=== PATIENT | female | born 1940 | race Caucasian/White ===

== ENCOUNTER → 2020-04-05 | Outpatient (CLI) | payer MEDICARE, OTHER ==
[~2020-04-05] MED LIST: ALBU3IS; ALBU90OI INH; DIPH50 PO; FAMO40 PO; FISH1000; FLUSAL2505; FLUSAL2505 IH; HYDROCHLOROTHIAZIDE; LEVSOD100 PO; LEVSOD75; LISHYD2025 PO; LISI10; MONT10T; MONT10T PO; OMEP20ER PO; POTCHL10ER PO; PRED10; PRED10 PO; REMICADE; TRIF2 PO
== END | disposition home or self-care (01) ==
LOC: LAB SHORT 13:45 → LAB UCHC 13:45
DX: R10.9 Unspecified abdominal pain (principal)
CPT/HCPCS: 87086

== ENCOUNTER → 2022-08-22 | Outpatient (CLI) | payer MEDICARE, OTHER | END | disposition home or self-care (01) | LOC: LAB SHORT 16:11 | DX: L08.9 Local infection of the skin and subcutaneous tissue, unspecified (principal) | CPT/HCPCS: 87070; 87205 ==

== ENCOUNTER 2023-06-15 18:46 | Observation (INO) | payer MEDICARE, OTHER ==
[~2023-06-15] VITALS: Ht 157.5 cm; Wt 55.0 kg
[~2023-06-15 18:46] MED LIST changes: -ATOR10 PO; -DILT120 PO; -ELIQUIS2.5 MG PO; -HYDCHL25 PO; -PRED20 PO; -XARELTO20 MG PO
[2023-06-15 19:58] LABS: BASOPHILS ABSOLUTE AUTO 0.08 K/mm3 (0.00-0.23); BASOPHILS PERCENT AUTO 1 % (0-2); EOSINOPHILS ABSOLUTE AUTO 0.16 K/mm3 (0.00-0.68); EOSINOPHILS PERCENT AUTO 2 % (0-6); Hematocrit 46.6 % (33.0-51.0); IMMATURE GRAN ABSOLUTE AUTO 0.03 K/mm3 (0.00-0.10); IMMATURE GRAN PERCENT AUTO 0 % (0-1); LYMPHOCYTES ABSOLUTE AUTO 1.99 K/mm3 (0.84-5.20); LYMPHOCYTES PERCENT AUTO 25 % (21-46); MONOCYTES ABSOLUTE AUTO 0.64 K/mm3 (0.16-1.47); MONOCYTES PERCENT AUTO 8 % (4-13); Mean Corpuscular HGB 30.6 pg (26.0-34.0); Mean Corpuscular HGB Conc 34.3 g/dL (31.5-36.5); Mean Corpuscular Volume 89 fL (80-100); Mean Platelet Volume 9.5 fL (9.1-12.4); NEUTROPHILS ABSOLUTE AUTO 5.09 K/mm3 (1.96-9.15); NEUTROPHILS PERCENT AUTO 64 % (41-73); Platelet Count 198 K/mm3 (150-400); RDW Coefficient Variation 13.4 % (11.7-14.2); RDW Standard Deviation 43.8 fL (35.1-46.3); Red Blood Cell Count 5.23 M/mm3 (3.80-5.20); White Blood Cell Count 7.99 K/mm3 (4.00-11.30)
[2023-06-15 20:33] LABS: Albumin, Blood 3.9 g/dL (3.4-5.0); Albumin/Globulin Ratio 1.2 (0.8-1.8); Bilirubin, Total 2.1 mg/dL (0.1-1.0); Bun/Creatinine Ratio 17.7 (12.0-20.0); Calcium, Blood 9.2 mg/dL (8.5-10.1); Creatinine, Blood 0.85 mg/dL (0.40-1.00); Globulin, Blood 3.3 g/dL (2.2-4.0); Potassium, Blood 3.2 mmol/L (3.5-5.5); Total Protein, Blood 7.2 g/dL (6.4-8.2)
[2023-06-16] MEDS ORDERED: DILT120 PO ×2 (00:51→16:27)
[2023-06-16] MEDS ORDERED: XARELTO20 MG PO (00:51)
[2023-06-16 03:37] LABS: Thyroid Stimulating Hormone 3.54 uIU/mL (0.360-4.800)
[2023-06-16 03:40] VITALS: BP 145/82
[2023-06-16] MEDS ORDERED: HYDCHL25 PO (03:52)
[2023-06-16] MEDS ORDERED: ATOR10 PO (03:53)
--- NOTE | 2023-06-16 06:14 | NUR ---
SHIFT SUMMARY PATIENT ARRIVED TO PCU 17 VIA STRETCHER. ALERT AND ORINETED X4. ABLE TO SELF TRANSFER TO BED, STEADY ON FEET. PATIENT ARRIVED ON CARDIZEM DRIP AT 5, CONVERTED TO SINUS RHYTHM THIS MORNING, DRIP CURRENTLY OFF. PATIENT ON HOME DOSE O2, NO COMPLAINTS OF SHORTNESS OF BREATH. PATIENT DENIES CHEST PAIN, BLOOD PRESSURE STABLE. WILL CONTINUE TO MONITOR. CALL LIGHT WITHIN REACH.
[2023-06-16 07:18] VITALS: BP 136/86
[2023-06-16 09:17] LABS: Hematocrit 45.6 % (33.0-51.0); Hemoglobin 15.7 g/dL (11.5-16.0); Mean Corpuscular HGB Conc 34.4 g/dL (31.5-36.5); Mean Corpuscular Volume 90 fL (80-100); Mean Platelet Volume 9.8 fL (9.1-12.4); Platelet Count 196 K/mm3 (150-400); RDW Coefficient Variation 13.8 % (11.7-14.2); RDW Standard Deviation 45.3 fL (35.1-46.3); Red Blood Cell Count 5.07 M/mm3 (3.80-5.20); White Blood Cell Count 5.41 K/mm3 (4.00-11.30)
[2023-06-16 09:40] LABS: Albumin, Blood 3.8 g/dL (3.4-5.0); Albumin/Globulin Ratio 1.1 (0.8-1.8); Bilirubin, Total 2.1 mg/dL (0.1-1.0); Bun/Creatinine Ratio 18.1 (12.0-20.0); Calcium, Blood 9.3 mg/dL (8.5-10.1); Creatinine, Blood 0.94 mg/dL (0.40-1.00); Globulin, Blood 3.5 g/dL (2.2-4.0); Potassium, Blood 3.7 mmol/L (3.5-5.5); Total Protein, Blood 7.3 g/dL (6.4-8.2)
[2023-06-16 10:07] LABS: BASOPHILS ABSOLUTE MAN 0.05 K/mm3 (0.00-0.23); BASOPHILS PERCENT MAN 1 % (0-2); EOSINOPHILS PERCENT MAN 0 % (0-6); LYMPHOCYTES ABSOLUTE MAN 0.16 K/mm3 (0.84-5.20); LYMPHOCYTES PERCENT MAN 3 % (21-46); MONOCYTES ABSOLUTE MAN 0.05 K/mm3 (0.16-1.47); MONOCYTES PERCENT MAN 1 % (4-13); NEUTROPHILS ABSOLUTE MAN 5.13 K/mm3 (1.96-9.15); SEG NEUTROPHILS PERCENT MAN 95 % (41-73); TOTAL CELLS COUNTED 100
[2023-06-16 11:30] VITALS: BP 129/72
[2023-06-16] MEDS ORDERED: ELIQUIS2.5 MG PO (16:27)
[2023-06-16] MEDS ORDERED: PRED20 PO (16:27)
--- NOTE | 2023-06-16 18:03 | NUR ---
DISCHARGE: PT D/C VIA WHEECHAIR @1800. DISCHARGE INSTRUCTIONS AND EDUCATIONS PROVIDED. ALL BELONGINGS WITH PT.
== END 2023-06-16 18:05 | disposition home or self-care (01) ==
LOC: ER 18:46 → PCU 18:47
PROVIDERS: Emergency Medicine; Family Medicine; ADMIT Internal Medicine
DX: I48.91 Unspecified atrial fibrillation (principal); I11.0 Hypertensive heart disease with heart failure; I50.33 Acute on chronic diastolic (congestive) heart failure; J96.22 Acute and chronic respiratory failure with hypercapnia; J96.21 Acute and chronic respiratory failure with hypoxia; I27.20 Pulmonary hypertension, unspecified; E87.6 Hypokalemia; J44.9 Chronic obstructive pulmonary disease, unspecified; E03.9 Hypothyroidism, unspecified; Z66 Do not resuscitate; Z87.891 Personal history of nicotine dependence; Z88.0 Allergy status to penicillin; Z88.5 Allergy status to narcotic agent; Z88.8 Allergy status to other drugs, medicaments and biological substances; Z79.890 Hormone replacement therapy; Z79.899 Other long term (current) drug therapy
CPT/HCPCS: 36415; 71045; 71260; 80053; 83880; 84443; 84484; 85025; 85379; 93005; 93010; 94640; 94664; 94760; 96365; 96375; 96375-59; 96376; 96376-59; 97161; 99285-25; A9270; G0378; J1200; J1940; J2930; J7120; J7512; Q9967

== ENCOUNTER → 2023-06-15 | Outpatient (CLI) | payer MEDICARE, OTHER ==
[~2023-06-15] MED LIST changes: +ATOR10 PO; +DILT120 PO; +ELIQUIS2.5 MG PO; +HYDCHL25 PO; +PRED20 PO; +XARELTO20 MG PO
[2023-06-15 15:45] LABS: BASOPHILS ABSOLUTE AUTO 0.08 K/mm3 (0.00-0.23); BASOPHILS PERCENT AUTO 1 % (0-2); EOSINOPHILS ABSOLUTE AUTO 0.15 K/mm3 (0.00-0.68); EOSINOPHILS PERCENT AUTO 2 % (0-6); Hematocrit 46.2 % (33.0-51.0); Hemoglobin 16.1 g/dL (11.5-16.0); IMMATURE GRAN ABSOLUTE AUTO 0.03 K/mm3 (0.00-0.10); IMMATURE GRAN PERCENT AUTO 0 % (0-1); LYMPHOCYTES ABSOLUTE AUTO 1.85 K/mm3 (0.84-5.20); LYMPHOCYTES PERCENT AUTO 23 % (21-46); MONOCYTES ABSOLUTE AUTO 0.62 K/mm3 (0.16-1.47); MONOCYTES PERCENT AUTO 8 % (4-13); Mean Corpuscular HGB 31.4 pg (26.0-34.0); Mean Corpuscular HGB Conc 34.8 g/dL (31.5-36.5); Mean Corpuscular Volume 90 fL (80-100); Mean Platelet Volume 9.6 fL (9.1-12.4); NEUTROPHILS ABSOLUTE AUTO 5.29 K/mm3 (1.96-9.15); NEUTROPHILS PERCENT AUTO 66 % (41-73); Platelet Count 223 K/mm3 (150-400); RDW Coefficient Variation 13.7 % (11.7-14.2); RDW Standard Deviation 45.3 fL (35.1-46.3); Red Blood Cell Count 5.12 M/mm3 (3.80-5.20); White Blood Cell Count 8.02 K/mm3 (4.00-11.30)
[2023-06-15 16:11] LABS: Albumin, Blood 3.9 g/dL (3.4-5.0); Albumin/Globulin Ratio 1.1 (0.8-1.8); Bilirubin, Total 2.4 mg/dL (0.1-1.0); Bun/Creatinine Ratio 14.2 (12.0-20.0); Calcium, Blood 9.3 mg/dL (8.5-10.1); Creatinine, Blood 1.06 mg/dL (0.40-1.00); Free Thyroxine 1.56 ng/dL (0.70-1.60); Globulin, Blood 3.4 g/dL (2.2-4.0); Magnesium, Blood 1.8 mg/dL (1.6-2.4); Potassium, Blood 2.8 mmol/L (3.5-5.5); Thyroid Stimulating Hormone 4.019 uIU/mL (0.360-4.800); Total Protein, Blood 7.3 g/dL (6.4-8.2)
== END | disposition home or self-care (01) ==
LOC: LAB 15:41 → LAB SHORT 15:41
PROVIDERS: Emergency Medicine
DX: I48.91 Unspecified atrial fibrillation (principal); R00.0 Tachycardia, unspecified
CPT/HCPCS: 80053; 83735; 84439; 84443; 84481; 84484; 85025

== ENCOUNTER → 2023-07-26 | Outpatient (CLI) | payer MEDICARE, OTHER ==
[~2023-07-26] MED LIST changes: +ATOR10 PO; +DILT120 PO; +ELIQUIS2.5 MG PO; +HYDCHL25 PO; +PRED20 PO; +XARELTO20 MG PO
[2023-07-26 18:47] LABS: Albumin, Blood 3.6 g/dL (3.4-5.0); Anion Gap 6 mmol/L (6-16); Blood Urea Nitrogen 19 mg/dL (8-24); Bun/Creatinine Ratio 28.5 (12.0-20.0); CO2, Blood 31 mmol/L (21-32); Chloride, Blood 103 mmol/L (98-108); Creatinine, Blood 0.67 mg/dL (0.40-1.00); Glomerular Filtration Rate 87 (60-); Glucose, Blood 109 mg/dL (70-99); Phosphorus, Blood 3.1 mg/dL (2.5-4.9); Sodium, Blood 140 mmol/L (136-145)
== END ==
LOC: LAB 15:00 → LAB SHORT 15:00
PROVIDERS: Internal Medicine
DX: I27.21 Secondary pulmonary arterial hypertension (principal)
CPT/HCPCS: 80069

== ENCOUNTER → 2024-01-31 | Outpatient (CLI) | payer MEDICARE, OTHER ==
[2024-01-31 14:47] LABS: BASOPHILS ABSOLUTE AUTO 0.05 K/mm3 (0.00-0.23); BASOPHILS PERCENT AUTO 1 % (0-2); EOSINOPHILS ABSOLUTE AUTO 0.11 K/mm3 (0.00-0.68); EOSINOPHILS PERCENT AUTO 2 % (0-6); Hematocrit 44.7 % (33.0-51.0); Hemoglobin 14.6 g/dL (11.5-16.0); IMMATURE GRAN ABSOLUTE AUTO 0.02 K/mm3 (0.00-0.10); IMMATURE GRAN PERCENT AUTO 0 % (0-1); LYMPHOCYTES ABSOLUTE AUTO 1.51 K/mm3 (0.84-5.20); LYMPHOCYTES PERCENT AUTO 28 % (21-46); MONOCYTES ABSOLUTE AUTO 0.44 K/mm3 (0.16-1.47); MONOCYTES PERCENT AUTO 8 % (4-13); Mean Corpuscular HGB 30.2 pg (26.0-34.0); Mean Corpuscular HGB Conc 32.7 g/dL (31.5-36.5); Mean Corpuscular Volume 92 fL (80-100); Mean Platelet Volume 10.6 fL (9.1-12.4); NEUTROPHILS ABSOLUTE AUTO 3.29 K/mm3 (1.96-9.15); NEUTROPHILS PERCENT AUTO 61 % (41-73); Platelet Count 175 K/mm3 (150-400); RDW Coefficient Variation 14.6 % (11.7-14.2); RDW Standard Deviation 49.5 fL (35.1-46.3); Red Blood Cell Count 4.84 M/mm3 (3.80-5.20); White Blood Cell Count 5.42 K/mm3 (4.00-11.30)
[2024-01-31 14:58] LABS: Anion Gap 11 mmol/L (3-11); Blood Urea Nitrogen 25 mg/dL (8-24); Bun/Creatinine Ratio 28.1 (12.0-20.0); Bun/Creatinine Ratio 29.3 (12.0-20.0); CO2, Blood 26 mmol/L (21-32); Calcium, Blood 9.2 mg/dL (8.5-10.1); Calcium, Blood 9.3 mg/dL (8.5-10.1); Chloride, Blood 106 mmol/L (98-108); Creatinine, Blood 0.85 mg/dL (0.40-1.00); Creatinine, Blood 0.89 mg/dL (0.40-1.00); Glomerular Filtration Rate 65 (60-); Glucose, Blood 91 mg/dL (70-99); Phosphorus, Blood 3.4 mg/dL (2.5-4.9); Potassium, Blood 3.3 mmol/L (3.5-5.5); Sodium, Blood 140 mmol/L (136-145)
== END | disposition home or self-care (01) ==
LOC: LAB 11:15 → LAB SHORT 11:15
PROVIDERS: Internal Medicine; Registered Nurse
DX: Z51.81 Encounter for therapeutic drug level monitoring (principal); E87.6 Hypokalemia; I27.21 Secondary pulmonary arterial hypertension; I10 Essential (primary) hypertension; R00.2 Palpitations; Z79.01 Long term (current) use of anticoagulants
CPT/HCPCS: 80048; 80069; 83880; 85025

== ENCOUNTER → 2024-05-15 | Outpatient (CLI) | payer MEDICARE, OTHER ==
[2024-05-15 15:29] LABS: BASOPHILS ABSOLUTE AUTO 0.05 K/mm3 (0.00-0.23); BASOPHILS PERCENT AUTO 1 % (0-2); EOSINOPHILS ABSOLUTE AUTO 0.14 K/mm3 (0.00-0.68); EOSINOPHILS PERCENT AUTO 3 % (0-6); Hematocrit 38.6 % (33.0-51.0); Hemoglobin 12.9 g/dL (11.5-16.0); IMMATURE GRAN ABSOLUTE AUTO 0.03 K/mm3 (0.00-0.10); IMMATURE GRAN PERCENT AUTO 1 % (0-1); LYMPHOCYTES ABSOLUTE AUTO 0.93 K/mm3 (0.84-5.20); LYMPHOCYTES PERCENT AUTO 17 % (21-46); MONOCYTES ABSOLUTE AUTO 0.48 K/mm3 (0.16-1.47); MONOCYTES PERCENT AUTO 9 % (4-13); Mean Corpuscular HGB 31.8 pg (26.0-34.0); Mean Corpuscular HGB Conc 33.4 g/dL (31.5-36.5); Mean Corpuscular Volume 95 fL (80-100); Mean Platelet Volume 10.7 fL (9.1-12.4); NEUTROPHILS ABSOLUTE AUTO 3.96 K/mm3 (1.96-9.15); NEUTROPHILS PERCENT AUTO 71 % (41-73); Platelet Count 192 K/mm3 (150-400); RDW Coefficient Variation 13.6 % (11.7-14.2); RDW Standard Deviation 47.8 fL (35.1-46.3); Red Blood Cell Count 4.06 M/mm3 (3.80-5.20); White Blood Cell Count 5.59 K/mm3 (4.00-11.30)
[2024-05-15 15:50] LABS: Albumin, Blood 3.9 g/dL (3.4-5.0); Anion Gap 11 mmol/L (3-11); Blood Urea Nitrogen 22 mg/dL (8-24); Bun/Creatinine Ratio 29.3 (12.0-20.0); CO2, Blood 24 mmol/L (21-32); Calcium, Blood 9.5 mg/dL (8.5-10.1); Chloride, Blood 111 mmol/L (98-108); Creatinine, Blood 0.75 mg/dL (0.40-1.00); Glomerular Filtration Rate 79 (60-); Glucose, Blood 91 mg/dL (70-99); Phosphorus, Blood 3.7 mg/dL (2.5-4.9); Potassium, Blood 4.2 mmol/L (3.5-5.5); Sodium, Blood 142 mmol/L (136-145)
== END | disposition home or self-care (01) ==
LOC: LAB SHORT 11:24 → LAB 11:24
PROVIDERS: Internal Medicine
DX: I48.19 Other persistent atrial fibrillation (principal); I27.21 Secondary pulmonary arterial hypertension; E03.9 Hypothyroidism, unspecified
CPT/HCPCS: 80069; 83880; 84443; 85025

== ENCOUNTER → 2024-07-25 | Outpatient (CLI) | payer MEDICARE, OTHER ==
[2024-07-25 17:05] LABS: BASOPHILS ABSOLUTE AUTO 0.05 K/mm3 (0.00-0.23); BASOPHILS PERCENT AUTO 1 % (0-2); EOSINOPHILS ABSOLUTE AUTO 0.16 K/mm3 (0.00-0.68); EOSINOPHILS PERCENT AUTO 3 % (0-6); Hematocrit 39.7 % (33.0-51.0); Hemoglobin 13.6 g/dL (11.5-16.0); IMMATURE GRAN ABSOLUTE AUTO 0.03 K/mm3 (0.00-0.10); IMMATURE GRAN PERCENT AUTO 1 % (0-1); LYMPHOCYTES ABSOLUTE AUTO 1.53 K/mm3 (0.84-5.20); LYMPHOCYTES PERCENT AUTO 27 % (21-46); MONOCYTES ABSOLUTE AUTO 0.48 K/mm3 (0.16-1.47); MONOCYTES PERCENT AUTO 9 % (4-13); Mean Corpuscular HGB 31.4 pg (26.0-34.0); Mean Corpuscular HGB Conc 34.3 g/dL (31.5-36.5); Mean Corpuscular Volume 92 fL (80-100); Mean Platelet Volume 11.2 fL (9.1-12.4); NEUTROPHILS ABSOLUTE AUTO 3.33 K/mm3 (1.96-9.15); NEUTROPHILS PERCENT AUTO 60 % (41-73); Platelet Count 171 K/mm3 (150-400); RDW Coefficient Variation 13.3 % (11.7-14.2); RDW Standard Deviation 44.8 fL (35.1-46.3); Red Blood Cell Count 4.33 M/mm3 (3.80-5.20); White Blood Cell Count 5.58 K/mm3 (4.00-11.30)
[2024-07-25 17:34] LABS: Albumin, Blood 3.5 g/dL (3.4-5.0); Anion Gap 10 mmol/L (3-11); Blood Urea Nitrogen 19 mg/dL (8-24); Bun/Creatinine Ratio 28.9 (12.0-20.0); CO2, Blood 24 mmol/L (21-32); Calcium, Blood 9.5 mg/dL (8.5-10.1); Chloride, Blood 110 mmol/L (98-108); Creatinine, Blood 0.66 mg/dL (0.40-1.00); Glomerular Filtration Rate 87 (60-); Glucose, Blood 89 mg/dL (70-99); Phosphorus, Blood 3.6 mg/dL (2.5-4.9); Potassium, Blood 3.8 mmol/L (3.5-5.5); Sodium, Blood 140 mmol/L (136-145)
== END | disposition home or self-care (01) ==
LOC: LAB 14:33 → LAB SHORT 14:33
PROVIDERS: Internal Medicine
DX: I27.21 Secondary pulmonary arterial hypertension (principal); J44.9 Chronic obstructive pulmonary disease, unspecified
CPT/HCPCS: 80069; 83880; 85025

== ENCOUNTER → 2024-08-19 | Outpatient (CLI) | payer MEDICARE, OTHER ==
[2024-08-19 14:56] LABS: Appearance, Urine Clear (Clear); Bilirubin, Urine Neg (Neg); Blood, Urine Neg (Neg); Glucose Qualitative, Urine Neg (Neg); Ketones, Urine Neg (Neg); Leukocyte Esterase, Urine Neg (Neg); Nitrite, Urine Neg (Neg); Protein, Urine Neg (Neg); Specific Gravity, Urine 1.015 (1.003-1.022); Urobilinogen, Urine NORM (Normal)
[2024-08-19 15:05] LABS: Color, Urine Yellow (P-Yellow)
== END | disposition home or self-care (01) ==
LOC: LAB 11:27 → LAB SHORT 11:27
PROVIDERS: Internal Medicine
DX: N39.0 Urinary tract infection, site not specified (principal)
CPT/HCPCS: 81003

== ENCOUNTER 2024-10-31 09:36 | Day surgery (SDC) | payer MEDICARE, OTHER ==
[2024-10-31] VITALS (8 sets, daily range): BP systolic 135–158; BP diastolic 86–122
[~2024-10-31] VITALS: Ht 157.5 cm; Wt 45.3 kg
[~2024-10-31 09:36] MED LIST changes: +FAMO20 PO; +FURO20 PO; +SERT50 PO; +SKYRIZI PE150 MG/1 M SQ; +SPIR25 PO; +TRAZ50 PO
[2024-10-31] MEDS ORDERED: Heparin Sodium 1000 Units/ML 10ML MDV ONE (10:06)
[2024-10-31] MEDS ORDERED: NS 500 ML IV ONE (10:07)
--- NOTE | 2024-10-31 10:59 | NUR ---
PREOP COMPLETED EARLIER, AND DURING PATIENT HAD VERBALIZED 3L NC AT HOME ARRIVED ON HOME UNIT, TRANSFERRED TO WALL O2 3L NC, SAT NOTED 80'S, PLACED ON OXYMASK 9L AND O2 INCREASED TO 100%, BEGAN TO WALK OXYMASK DOWN, NOW AT 6L AND REMAINS 96% AT PRESENT, DR. LEVY ARRIVED, AUSCULTATED LUNGS, SPOKE WITH PATIENT AND IN PROGRESS SPEAKING WITH DR. LIMON AND/OR [facility] IN [place]. PATIENT OTHERWISE RESTING, PLAN PENDING/PROCEDURE PENDING CLARIFICATION DUE TO OXYGEN REQUIREMENTS.
--- NOTE | 2024-10-31 11:59 | NUR ---
dr marsh to cancel procedure. pt trialed on portable o2 tank. o2 sat dropped to 84% due to tank being dependant. pt requires continuos flow. pt placed back on hospital o2. sat increased to 96%. pt family to bring portable o2 tank with continuos flow. pt resting in bed. family at bedside.
--- NOTE | 2024-10-31 12:03 | NUR ---
pt ok to dc home per dr marsh. pt given coffee per request.
--- NOTE | 2024-10-31 13:03 | NUR ---
pt family brought o2 tank. pt changed. iv out. pt taken to y via wc.
--- NOTE | 2024-10-31 13:05 | NUR ---
pt denied sob and all other symptoms upon leaving hospital.
== END 2024-10-31 15:06 | disposition home or self-care (01) ==
LOC: MHTC 09:36
DX: I27.20 Pulmonary hypertension, unspecified (principal); I48.19 Other persistent atrial fibrillation; Z53.09 Procedure and treatment not carried out because of other contraindication
CPT/HCPCS: J1644; J7050

== ENCOUNTER → 2024-11-18 | Outpatient (CLI) | payer MEDICARE, OTHER ==
[2024-11-18 16:51] LABS: BASOPHILS ABSOLUTE AUTO 0.01 K/mm3 (0.00-0.23); BASOPHILS PERCENT AUTO 0 % (0-2); EOSINOPHILS ABSOLUTE AUTO 0.01 K/mm3 (0.00-0.68); EOSINOPHILS PERCENT AUTO 0 % (0-6); Hematocrit 44.6 % (33.0-51.0); Hemoglobin 14.7 g/dL (11.5-16.0); IMMATURE GRAN ABSOLUTE AUTO 0.05 K/mm3 (0.00-0.10); IMMATURE GRAN PERCENT AUTO 1 % (0-1); LYMPHOCYTES ABSOLUTE AUTO 0.43 K/mm3 (0.84-5.20); LYMPHOCYTES PERCENT AUTO 8 % (21-46); MONOCYTES ABSOLUTE AUTO 0.03 K/mm3 (0.16-1.47); MONOCYTES PERCENT AUTO 1 % (4-13); Mean Corpuscular HGB 31.3 pg (26.0-34.0); Mean Corpuscular Volume 95 fL (80-100); Mean Platelet Volume 10.5 fL (9.1-12.4); NEUTROPHILS PERCENT AUTO 90 % (41-73); Platelet Count 203 K/mm3 (150-400); RDW Coefficient Variation 14.6 % (11.7-14.2); RDW Standard Deviation 50.3 fL (35.1-46.3); Red Blood Cell Count 4.69 M/mm3 (3.80-5.20); White Blood Cell Count 5.53 K/mm3 (4.00-11.30)
[2024-11-18 17:02] LABS: Albumin, Blood 3.9 g/dL (3.4-5.0); Albumin/Globulin Ratio 1.1 (0.8-1.8); Bilirubin, Total 2.2 mg/dL (0.1-1.0); Calcium, Blood 9.6 mg/dL (8.5-10.1); Creatinine, Blood 1.05 mg/dL (0.40-1.00); Globulin, Blood 3.6 g/dL (2.2-4.0); Total Protein, Blood 7.5 g/dL (6.4-8.2)
== END ==
LOC: LAB 16:46 → LAB SHORT 16:46
PROVIDERS: Family Medicine
DX: R00.0 Tachycardia, unspecified (principal)
CPT/HCPCS: 80053; 83880; 84484; 85025

== ENCOUNTER → 2024-12-04 | Outpatient (CLI) | payer MEDICARE, OTHER ==
[2024-12-04 16:04] LABS: Albumin, Blood 3.6 g/dL (3.4-5.0); Anion Gap 8 mmol/L (3-11); Blood Urea Nitrogen 19 mg/dL (8-24); Bun/Creatinine Ratio 30.2 (12.0-20.0); CO2, Blood 29 mmol/L (21-32); Calcium, Blood 9.2 mg/dL (8.5-10.1); Chloride, Blood 108 mmol/L (98-108); Creatinine, Blood 0.63 mg/dL (0.40-1.00); Glomerular Filtration Rate 88 (60-); Glucose, Blood 90 mg/dL (70-99); Potassium, Blood 3.9 mmol/L (3.5-5.5); Sodium, Blood 141 mmol/L (136-145); Uric Acid, Blood 5.2 mg/dL (2.6-6.0)
== END ==
LOC: LAB 11:34 → LAB SHORT 11:34
PROVIDERS: Internal Medicine
DX: I50.32 Chronic diastolic (congestive) heart failure (principal); Z87.39 Personal history of other diseases of the musculoskeletal system and connective tissue
CPT/HCPCS: 80069; 83880; 84550

== ENCOUNTER 2025-01-08 12:52 | Inpatient (IN) | payer MEDICARE, OTHER ==
[~2025-01-08] VITALS: Ht 157.5 cm; Wt 45.5 kg
[2025-01-08 13:20] LABS: BASOPHILS ABSOLUTE AUTO 0.03 K/mm3 (0.00-0.23); BASOPHILS PERCENT AUTO 0 % (0-2); EOSINOPHILS ABSOLUTE AUTO 0.01 K/mm3 (0.00-0.68); EOSINOPHILS PERCENT AUTO 0 % (0-6); Hematocrit 44.7 % (33.0-51.0); Hemoglobin 14.9 g/dL (11.5-16.0); IMMATURE GRAN ABSOLUTE AUTO 0.09 K/mm3 (0.00-0.10); IMMATURE GRAN PERCENT AUTO 1 % (0-1); LYMPHOCYTES ABSOLUTE AUTO 1.46 K/mm3 (0.84-5.20); LYMPHOCYTES PERCENT AUTO 12 % (21-46); MONOCYTES ABSOLUTE AUTO 1.28 K/mm3 (0.16-1.47); MONOCYTES PERCENT AUTO 11 % (4-13); Mean Corpuscular HGB 31.6 pg (26.0-34.0); Mean Corpuscular HGB Conc 33.3 g/dL (31.5-36.5); Mean Corpuscular Volume 95 fL (80-100); Mean Platelet Volume 10.2 fL (9.1-12.4); NEUTROPHILS ABSOLUTE AUTO 8.91 K/mm3 (1.96-9.15); NEUTROPHILS PERCENT AUTO 76 % (41-73); Platelet Count 258 K/mm3 (150-400); RDW Coefficient Variation 15.4 % (11.7-14.2); RDW Standard Deviation 52.4 fL (35.1-46.3); Red Blood Cell Count 4.71 M/mm3 (3.80-5.20); White Blood Cell Count 11.78 K/mm3 (4.00-11.30)
[2025-01-08 13:42] LABS: Albumin/Globulin Ratio 1.5 (0.8-1.8); Bilirubin, Total 5.1 mg/dL (0.1-1.0); Bun/Creatinine Ratio 43.7 (12.0-20.0); Calcium, Blood 9.9 mg/dL (8.5-10.1); Creatinine, Blood 1.42 mg/dL (0.40-1.00); Globulin, Blood 2.6 g/dL (2.2-4.0); Potassium, Blood 4.8 mmol/L (3.5-5.5); Total Protein, Blood 6.6 g/dL (6.4-8.2)
[2025-01-08] MEDS ORDERED: NS 1,000 ML IV SCH (14:25)
[2025-01-08] MEDS ORDERED: Diltiazem HCl 5 MG / ML 5ML Vial IV ONE (15:35)
[2025-01-08] MEDS ORDERED: Dexamethasone Sod Phos 10 MG/ML 1ML VIAL IV ONE (16:20)
[2025-01-08] MEDS ORDERED: DiphenhydrAMINE HCl 50 MG/ML 1ML Vial IV ONE (16:20)
[2025-01-08] MEDS ORDERED: dilTIAZem HCL 60 MG TAB PO ONE (20:15)
[2025-01-08] MEDS ORDERED: Metoprolol Tartrate 1 MG/ML 5 ML VIAL IV PRN (20:15)
[2025-01-08 20:26] LABS: International Normalized Ratio 2.18; Prothrombin Time Results 22.6 Sec (9.7-11.5)
[2025-01-08] MEDS ORDERED: Apixaban 5 MG Tab PO SCH (21:00)
[2025-01-08] MEDS ORDERED: Furosemide 10 MG / ML 2ML Vial IV SCH (21:00)
[2025-01-08] MEDS ORDERED: Acetaminophen 325 MG TABLET PO PRN (21:25)
[2025-01-08 22:28] VITALS: BP 130/79
[2025-01-08 23:46] VITALS: BP 128/82
[2025-01-09 03:46] VITALS: BP 126/81
[2025-01-09 06:06] LABS: BASOPHILS ABSOLUTE AUTO 0.01 K/mm3 (0.00-0.23); BASOPHILS PERCENT AUTO 0 % (0-2); EOSINOPHILS PERCENT AUTO 0 % (0-6); Hematocrit 47.3 % (33.0-51.0); Hemoglobin 14.6 g/dL (11.5-16.0); IMMATURE GRAN ABSOLUTE AUTO 0.07 K/mm3 (0.00-0.10); IMMATURE GRAN PERCENT AUTO 1 % (0-1); LYMPHOCYTES ABSOLUTE AUTO 0.98 K/mm3 (0.84-5.20); LYMPHOCYTES PERCENT AUTO 10 % (21-46); MONOCYTES ABSOLUTE AUTO 0.47 K/mm3 (0.16-1.47); MONOCYTES PERCENT AUTO 5 % (4-13); Mean Corpuscular HGB 31.1 pg (26.0-34.0); Mean Corpuscular HGB Conc 30.9 g/dL (31.5-36.5); Mean Platelet Volume 10.5 fL (9.1-12.4); NEUTROPHILS ABSOLUTE AUTO 8.27 K/mm3 (1.96-9.15); NEUTROPHILS PERCENT AUTO 84 % (41-73); Platelet Count 202 K/mm3 (150-400); RDW Coefficient Variation 15.4 % (11.7-14.2); RDW Standard Deviation 56.5 fL (35.1-46.3)
[2025-01-09 06:27] LABS: Mean Corpuscular Volume 101 fL (80-100)
[2025-01-09 06:36] LABS: Albumin/Globulin Ratio 1.5 (0.8-1.8); Bilirubin, Total 6.2 mg/dL (0.1-1.0); Bun/Creatinine Ratio 40.4 (12.0-20.0); Calcium, Blood 9.6 mg/dL (8.5-10.1); Creatinine, Blood 1.71 mg/dL (0.40-1.00); Globulin, Blood 2.7 g/dL (2.2-4.0); Potassium, Blood 5.5 mmol/L (3.5-5.5); Total Protein, Blood 6.7 g/dL (6.4-8.2)
[2025-01-09] MEDS ORDERED: Dextrose 50% 50 ML Vial IV ONE (07:40)
[2025-01-09 07:50] VITALS: BP 139/82
[2025-01-09] MEDS ORDERED: Clarify Drug Order XX ONE (07:55)
--- NOTE | 2025-01-09 07:55 | NUR ---
NEW ADMIT / GEOSCIENCES FACULTY MEMBER SUMMARY NEW ADMIT FOR ACUTE ON CHRONIC RESP FAILURE. PT IS A 84 Y/O FEMALE. DNI CODE STATUS. PLEASANT AND COOPERATIVE. PT A/OX3-4; FORGETFUL. POOR HISTORIAN OF MEDICAL HISTORY. PT HAS LIST OF "CURRENT" MEDS WHICH DONT MATCH RECENT MED CLAIM. PT STATED AT ONE POINE SHE STOPPED TAKING MEDS A FEW DAYS AGO BECAUSE SHE IS NOT FEELING WELL. PT REPORTS SHE LIVES IN A SINGLE STORY HOME; SHE LIVES ALONE WITH SMALL DOG. PT IS ABLE TO MAKE NEEDS KNOWN. ORIENTED PT TO ROOM AND CALL LIGHT. PT ON 4.5 LPM OF OXYGEN NASAL CANNUAL TO MAINTAIN SATS. PT ON 3LPM AT HOME/BASELINE. PT WAKEFUL T/O THE NIGHT. PT STATING FREQUENTLY THAT SHE FEELS "LOOPY" WHICH IS ABNORMAL FOR HER. PT ON TELE, AFLUTTER IN THE 90'S. VITAL SIGNS REVIEWED AND STABLE. PT ON STRICT I & O. CRACKLES IN THE BASES OF LUNGS. CALL TO HOSPTIALIST; SPOKE WITH DR WILLS; OBTAINED ORDER FOR OXYGEN THERAPY AND BP PROTOCOL FOR COPD. AFTER SHIFT CHANGE REPORT; FOUND DEXTROSE ORDERED FOR PT DUE TO GLUCOSE LAB OF 51. TOOK PT APPLEJUICE AND NOTIFIED CHARGE WHO WAS GOING TO PULL/ADMIN DEXTROSE. PT DENIES A KNOWN HISTORY OF LOW BLOOD SUGAR. PT STATES SHE HAS BEEN EATING/DRINKING LESS DUE TO NOT FEELING WELL.
[2025-01-09] MEDS ORDERED: dilTIAZem HCL 120 MG CAP.CD PO SCH (09:00)
[2025-01-09] MEDS ORDERED: Diltiazem HCl 180 MG Cap.CD PO SCH (09:00)
[2025-01-09] MEDS ORDERED: Furosemide 10 MG/ML 4ML Vial IV SCH (09:00)
[2025-01-09 09:57] LABS: International Normalized Ratio 4.36
--- NOTE | 2025-01-09 10:04 | NUR ---
RECEIVED UPDATE THAT PT HAD A CRITICAL LOW BLOOD GLUCOSE OF 36 AND ORDER FOR 12.5MG DEXTROSE IV ADMINISTERED. PT REQUIRED 2 IV INSERTS DUE TO VEIN BLOWING. PER ORDER OBTAINED BLOOD GLUCOSE READING AT 20 MINUTES AFTER DEXTROSE ADMINISTERED AND RESULT WAS 142. THIS RN CALLED AND UPDTATED DR. TOMPKINS OF RESULTS AND ORDER TO OBTAIN BLOOD GLUCOSE READINGS Q4 HOURS RECIEVED.
[2025-01-09] MEDS ORDERED: Mometasone/Formoterol MDI 100/5 mcg 13 GM INH SCH (10:25)
--- NOTE | 2025-01-09 11:17 | NUR ---
CALLED DR. IYER REGARDING ORDER THAT WAS RECEIVED FROM DR. FLORES TO TRANSFER PT TO PCU. DR. IYER DOES NOT AGREE AND CONFIRMED WITH HER THAT PT IS NOT TRANSFERRING TO PCU.
[2025-01-09 12:02] VITALS: BP 123/63
[2025-01-09] MEDS ORDERED: Ondansetron HCl 2 MG / ML 2ML Vial IV PRN (12:45)
[2025-01-09] MEDS ORDERED: Furosemide 10 MG / ML 2ML Vial IV ONE (13:00)
[2025-01-09 13:06] VITALS: BP 147/73
[2025-01-09 13:51] LABS: Adenovirus Not Detected (NOT DETECT); Bordetella pertussis Not Detected (NOT DETECT); Chlamydophila pneumoniae Not Detected (NOT DETECT); Coronavirus 229E Not Detected (NOT DETECT); Coronavirus HKU1 Not Detected (NOT DETECT); Coronavirus NL63 Not Detected (NOT DETECT); Coronavirus OC43 Not Detected (NOT DETECT); Human Metapneumovirus Not Detected (NOT DETECT); Human Rhinovirus/Enterovirus Not Detected (NOT DETECT); Influenza A/2009-H1 Not Detected (NOT DETECT); Influenza A/H1 Not Detected (NOT DETECT); Influenza A/H3 Not Detected (NOT DETECT); Influenza B Not Detected (NOT DETECT); Mycoplasma pneumoniae Not Detected (NOT DETECT); Parainfluenza Virus 1 Not Detected (NOT DETECT); Parainfluenza Virus 2 Not Detected (NOT DETECT); Parainfluenza Virus 3 Not Detected (NOT DETECT); Parainfluenza Virus 4 Not Detected (NOT DETECT); Respiratory Syncytial Virus Not Detected (NOT DETECT); SARS-Cov-2 (COVID-19), BioFire Not Detected (NOT DETECT)
[2025-01-09] MEDS ORDERED: Atropine Sulfate 1% Opth Soln 2ML BTL SL PRN ×2 (14:45→15:05)
[2025-01-09] MEDS ORDERED: Acetaminophen 650 MG Supp PR PRN (14:45)
[2025-01-09] MEDS ORDERED: Scopolamine Hydrobromide Patch TOP PRN (14:45)
[2025-01-09] MEDS ORDERED: Promethazine HCl 25 MG Tab PO PRN ×2 (14:45→15:00)
[2025-01-09] MEDS ORDERED: LORazepam 0.5 MG Tab PO PRN (14:55)
[2025-01-09] MEDS ORDERED: Morphine Sulfate 20 MG/1ML 1 ML Oral Syringe SL PRN ×2 (14:55→15:05)
[2025-01-09] MEDS ORDERED: Acetaminophen 325 MG TABLET PO PRN (15:00)
[2025-01-09] MEDS ORDERED: LORazepam 1 MG Tab PO PRN (15:05)
[2025-01-09] MEDS ORDERED: Haloperidol Lactate Inj. 5 MG/ML Injection IV PRN (15:05)
--- NOTE | 2025-01-09 15:45 | NUR ---
PALLIATIVE CARE CASE CONFERENCE: POC: COMFORT CARE, DC WITH HOSPICE CALL FROM MD TODAY TO EXPEDITE MEETING WITH PT RE: GOC. PER MED PT IS HOSPICE /CC APPROPRIATE. REVIEWED MEDICAL RECORD, DISCUSSED CONCERNS WITH PRIMARY RN. PT REPORTED TO BE ALERT AND ORIENTED. MET WITH PT IN HER ROOM. PT IS AWAKE, SOFT SPOKEN, ALERT AND ABLE TO HAVE MEANINGFUL CONVERSATION. PROCEEDED TO HAVE DISCUSSION ABOUT HER CURRENT ILLNESS. PT EDUCATED ON MRCP PROCEDURE RECOMMENDATION FOR CONTINUED TREATMENT. PT STATED SHE DID NOT WANT TO HAVE ANY FURTHER TESTS OR TREATMENTS DONE. EDUCATED PT ON HOSPICE BENEFIT AND COMFORT CARE MEASURES PROVIDED IN THE HOSPITAL. PT AGREES TO COMFORT CARE BUT IS NOT SURE SHE CAN DO HOSPICE AT HOME DUE TO LIVING ALONE AT THIS TIME. CHU RUIZ LIVES WITH HER BUT IS OUT OF TOWN. DISCUSSED SYMPTOM MANAGEMENT. PT CURRENTLY HAS NAUSEA NOT CONTROLLED BY ZOFRAN. DENIES PAIN. PT IS SOB WITH EXERTION, SPEAKING SHORT SENTENCES. SHE IS FRAIL CACHECTIC JAUNDICED IN APPEARANCE. ON 4.5 LPM VIA NC OF OXYGEN. CALLED DR. IYER WITH UPDATE ON OUR CONVERSATION. SHE IS AGREEABLE TO COMFORT CARE. COMFORT MEDICATIONS TO BE STARTED CONSERVATIVELY. OK FOR PT TO HAVE PHENERGRAN 25 MG IN ADDITION TO ZOFRAN FOR NAUSEA. LORAZEPAM OK FOR SOB. COMFORT ORDERS PLACED. BROUGHT PT COMFORT CARE QUILT AND NECK PILLOW FOR COMFORT. CALLED DAUGHTER KIAN ON THE PHONE AND GAVE HER UPDATE. SHE AND HER ARE CURRENTLY ENROUTE FROM [place] AND WILL ARRIVE AROUND 8-9 PM TONIGHT. CHU RUIZ IS ENROUTE VIA AIRPLANE CURRENTLY. KIAN STATED SHE APPRECIATED THE UPDATE. SHE WILL CALL SARA WHEN SHE GETS OFF THE PLANE. UPDATED PRIMARY RN, DANIEL WITH POC.
--- NOTE | 2025-01-09 16:09 | NUR ---
PT ALERT AND ORIENTED X4. SHE HAS HAD A CONSULT WITH PALLIATIVE CARE AND HAS CHOSEN TO BE COMFORT CARE ONLY WITH REFERRAL TO HOSPICE. PT WITH COMPLAINT OF NAUSEA AND ADMINISTERED 4MG ZOFRAN PER EMAR. SHE HAD SOME RELIEF AFTER DOSE ADMINISTERED. PT WITH DISCONTINUATION OF IV, TELEMETRY, AND CBG CHECKS. PT WITH MINIMAL APPETITE AND HAS BEEN ENCOURAGE TO EAT AND DRINK SMALL AMOUNTS. DIET IS ADVANCE TOLERATED. BED IN LOWEST POSITION AND CALL LIGHT IS WITHIN REACH.
--- NOTE | 2025-01-09 16:23 | NUR ---
"Spiritual Care | Comfor Care Visit Pt. is awake in bed and welcomes my visit. Pt. is pleasant. Facilitated a bried life review and considered matters of mio and belief. Pt. verbalized that she was raised roman catholic, but no longer worships in that tradition. Pt. verbalised an understanding of what comfort care means for her and also verbalized that she is looking forward to family arrive tonight. Prayed blessings over the Pt. and put her to sleep before the Amen. This bench lathe operator or the on-call bench lathe operator will remain available for the Pt. and family."
--- NOTE | 2025-01-09 16:41 | NUR ---
PALLIATIVE CARE VISIT/CARE CONFERENCE: MET WITH PT AND LONGTIME FRIEND PYRAMID LAKE IN THE ROOM. PT CONTINUES TO BE ABLE TO EXPRESS HER WANTS AND NEEDS. PYRAMID LAKE UPDATED ON PT CURRENT ILLNESS AND PROGNOSIS. PYRAMID LAKE AND PT GOAL IS TO GET JEANNE HOME WITH HOSPICE BUT PYRAMID LAKE STATES SHE NEEDS TO CHECK WITH HER VAN DRIVER IF SHE CAN CARE FOR HER AT HOME WITH HOSPICE AND SHE WILL ALSO NEED A COUPLE DAYS TO GET THE APT READY FOR PT TO COME BACK THEIR APT IS ONLY [address] THERE WILL NOT BE ROOM FOR A HOSPITAL BED BUT PT CAN SLEEP WITH HER IN HER HIMA SIZE BED. SHE WILL NEED TO RE-ARRANGE FURNITURE SO SHE CAN CARE FOR HER WHILE IN BED. PYRAMID LAKE STATES SHE IS 80 YEARS OLD BUT WITH HOSPICE HELP AND PT HAVING URINE CATHETER SHE CAN CARE FOR HER IF SHE IS BEDBOUND. PT WANTS TO BE ABLE TO EAT AND DRINK NOW. ADVISED OF RISKS OF EATING AND DRINKING AT THIS TIME. PT WANTS TO TAKE THE RISKS. DISCUSSED COMFORT CARE MEASURES SO PT CAN EAT AND DRINK AND STILL BE ABLE TO BE KEPT COMFORTABLE IF SHE WERE TO WORSEN. PT AND PYRAMID LAKE ARE AGREEABLE TO COMFORT CARE NOW SO SHE CAN EAT AND DRINK. DISCUSSED MEDICATION MANAGEMENT WITH DR. TEMPLETON. DR. TEMPLETON RECOMMENDS CONTINUEING ABX, FENTANYL AT CURRENT DOSE Q1 HOUR PRN FOR PAIN MANAGEMENT. WILL CONTINUE CURRENT MEDICATIONS TO OPTIMIZE HER FOR DISCHARGE HOME WITH HOSPICE SERVICES. DR. POLANCO UPDATED, LEFT MESSAGE FOR PRIMARY RN TO CALL UPDATED. LEFT MESSAGE FOR WEEKEND CM. ORDERS PLACED. CARE PLAN UPDATED.
[2025-01-09] MEDS ORDERED: Furosemide 20 MG Tab PO SCH (18:00)
[2025-01-10] MEDS ORDERED: Omeprazole 20 MG CapCR PO SCH (06:00)
--- NOTE | 2025-01-10 06:23 | NUR ---
WAS NOTIFIED BY FAMILY THAT PATIENT HAD PASSED AND TIME OF CALLED AT 1560.
[2025-01-10] MEDS ORDERED: Thiamine HCl 100 MG Tab PO SCH (09:00)
[2025-01-10] MEDS ORDERED: Multivitamins 1 Tab PO SCH (09:00)
== END 2025-01-10 04:50 ==
LOC: ER 12:52 → MEDS 19:54
PROVIDERS: Emergency Medicine; Internal Medicine; Student in an Organized Health Care Education/Training Program; ADMIT Family Medicine
PROC: B24BZZ4 Ultrasonography of Heart with Aorta, Transesophageal (ICD-10-PCS; principal; 2025-01-09)
DX: I11.0 Hypertensive heart disease with heart failure (principal); I50.33 Acute on chronic diastolic (congestive) heart failure; I21.A1 Myocardial infarction type 2; J96.21 Acute and chronic respiratory failure with hypoxia; N17.9 Acute kidney failure, unspecified; R18.8 Other ascites; I31.39 Other pericardial effusion (noninflammatory); I48.92 Unspecified atrial flutter; R64 Cachexia; Z68.1 Body mass index [BMI] 19.9 or less, adult; I48.20 Chronic atrial fibrillation, unspecified; Z51.5 Encounter for palliative care; K76.1 Chronic passive congestion of liver; K76.0 Fatty (change of) liver, not elsewhere classified; E03.9 Hypothyroidism, unspecified; J44.9 Chronic obstructive pulmonary disease, unspecified; I27.20 Pulmonary hypertension, unspecified; I50.810 Right heart failure, unspecified; I08.1 Rheumatic disorders of both mitral and tricuspid valves; K76.9 Liver disease, unspecified; Z88.5 Allergy status to narcotic agent; Z88.0 Allergy status to penicillin; Z88.8 Allergy status to other drugs, medicaments and biological substances; Z88.1 Allergy status to other antibiotic agents; Z91.041 Radiographic dye allergy status; L40.9 Psoriasis, unspecified; Z90.710 Acquired absence of both cervix and uterus; M10.9 Gout, unspecified; Z99.81 Dependence on supplemental oxygen
CPT/HCPCS: 0202U; 36415; 71045; 74177; 76705; 80053; 82533; 82947; 83690; 83735; 83880; 84484; 85025; 85610; 93005; 93010; 93306; 96374-59; 96375; 99285-25; A9270; J1100; J1200; J1938; J2405; J7030; J7799; Q9967